=== PATIENT | female | born 1965 | race Caucasian/White ===

== ENCOUNTER 2018-11-09 06:04 | Emergency (ER) | payer BC ==
[2018-11-09] MEDS ORDERED: BABY ASPIRIN 81 MG CHEW PO ONE (06:23)
--- NOTE | 2018-11-09 06:29 | ERPHSYRPT ---
<AIYANAALEXISSTONELEY - Last Filed: 11/09/18 07:02> - History of Present Illness Time Seen by Provider: 11/09/18 06:24 Historian: patient Exam Limitations: no limitations Patient Subjective Stated Complaint: pt states she began having pain in her chest radiating to back and jaw. Triage Nursing Assessment: pt alert and oriented, answers questiosn a pprop. pt ambualtory with steady gait noted. respirations nonlabored with lungs cta. sinus rhythm on monitor with heart rate of 94. Physician History: This is a 53-year-old white female arrives with complaint of pain in her anterior substernal and left chest radiating into her back, jaw, neck. This is described as a tightness associated with some shortness of breath. No nausea, positive diaphoresis occurred approximately 30 minutes prior to arrival. Pain initially radiated or 5 out of 10 now, rated 1 out of 10. Past medical history high blood pressure, GERD Past surgical history includes hemorrhoidectomy and uterine ablation Social history alcohol 2-3 times a week former smoker. (3 months). Patient denies illicit drugs Timing/Duration: today (30 minutes prior to arri) Activities at Onset: other (talking at work) Quality: pressure, tightness ( a pressure, tight pressur) Chest Pain Radiation: jaw, neck, back Severity of Pain-Max: moderate (5 out of 10) Severity of Pain-Current: mild (1 out of 10) Modifying Factors: Improves With: nothing Associated Symptoms: shortness of breath, diaphoresis, No nausea, No vomiting, No palpitations, No heartburn, No abdominal pain, No cough, No hurts to breathe , No chills, No fever, No fatigue, No weakness, No swelling/lump in chest, No syncope, No rash, No headache, No dizziness, No edema, No back pain Prior Chest Pain/Cardiac Workup: no prior chest pain (has had prior pain in the past never worked up) Nitro Today/Relief: no nitro taken today Aspirin Treatment Today: 81 mg x 4, provided by ED Allergies/Adverse Reactions: Penicillins Allergy (Verified 11/09/18 06:14) Home Medications: Lisinopril 20 mg [Zestril 20 MG] 20 mg PO DAILY 11/09/18 [History] Omeprazole 20 mg PO BID 11/09/18 [History] Hx Tetanus, Diphtheria Vaccination/Date Given: Yes Hx Influenza Vaccination/Date Given: Yes Hx Pneumococcal Vaccination/Date Given: No Immunizations Up to Date: Yes - Review of Systems Constitutional: No Fever, No Chills Eyes: No Symptoms Ears, Nose, & Throat: No Symptoms Respiratory: No Cough, No Dyspnea Cardiac: Chest Pain, Other (diaphoresis) Abdominal/Gastrointestinal: No Abdominal Pain, No Nausea, No Vomiting, No Diarrhea Genitourinary Symptoms: No Dysuria Musculoskeletal: No Back Pain, No Neck Pain Skin: No Rash Neurological: No Dizziness, No Focal Weakness, No Sensory Changes Psychological: No Symptoms Endocrine: No Symptoms All Other Systems: Reviewed and Negative - Past Medical History Pertinent Past Medical History: Yes Cardiac History: Hypertension GI Medical History: GERD - Past Surgical History Past Surgical History: Yes Gastrointestinal: Hemorrhoidectomy - Social History Smoking Status: Former smoker Exposure to second hand smoke: No Drug Use: none Patient Lives Alone: No - Female History Hx Last Menstrual Period: post Hx Now: No - Nursing Vital Signs Nursing Vital Signs: Initial Vital Signs Temperature 98.4 F 11/09/18 06:05 Pulse Rate 100 H 11/09/18 06:05 Respiratory Rate 18 11/09/18 06:05 Blood Pressure 144/87 11/09/18 06:05 O2 Sat by Pulse Oximetry 95 11/09/18 06:05 Pain Scale Pain Intensity 0 - Physical Exam General Appearance: no apparent distress, alert Eye Exam: PERRL/EOMI, eyes nml inspection Ears, Nose, Throat Exam: normal ENT inspection, moist mucous membranes Neck Exam: normal inspection, non-tender, supple, full range of motion Respiratory Exam: normal breath sounds, lungs clear, No chest tenderness, No respiratory distress Cardiovascular Exam: regular rate/rhythm, normal heart sounds, capillary refill <2 sec Gastrointestinal/Abdomen Exam: soft, No tenderness, No mass Back Exam: normal inspection, No CVA tenderness, No vertebral tenderness Extremity Exam: normal inspection, normal range of motion Neurologic Exam: alert, oriented x 3, cooperative, science editor II-XII nml as tested, normal mood/affect, sensation nml, No motor deficits Skin Exam: normal color, warm, dry SpO2 Interpretation: normal (95%) SpO2: 95 - Course Nursing assessment & vital signs reviewed: Yes EKG Interpreted by Me: RATE (84 bpm), Sinus Rhythm, NORMAL AXIS, Other (EKG: Sinus rhythm, 84 bpm, normal axis, no acute ST or T wave changes, normal EKG) - Radiology Exams Chest X-ray Interpretation: Interpreted by me (no acute disease process noted) Ordered Tests: Active Orders 24 hr Category Date Time Status [facility] STAT Care 11/09/18 06:23 Active EKG-ER Only STAT Care 11/09/18 06:23 Active IV Insertion STAT Care 11/09/18 06:23 Active Pulse Oximetry (ED) STAT Care 11/09/18 06:23 Active CHEST 1 VIEW (PORTABLE) Stat Exams 11/09/18 06:23 Completed CBC W DIFF Stat Lab 11/09/18 06:34 Completed CMP Stat Lab 11/09/18 06:34 Completed D-DIMER QUANTITATION Stat Lab 11/09/18 06:34 Completed TROPONIN Q3H Lab 11/09/18 06:34 Completed TROPONIN Q3H Lab 11/09/18 09:33 Completed TROPONIN Q3H Lab 11/09/18 12:30 Ordered TROPONIN Q3H Lab 11/09/18 15:30 Ordered TROPONIN Q3H Lab 11/09/18 18:30 Ordered Medication Summary Discontinued Medications Generic Name Dose Route Start Last Admin Trade Name Freq PRN Reason Stop Dose Admin Aspirin 324 mg 11/09/18 06:23 11/09/18 06:30 Baby Aspirin 81 Mg Chew PO 11/09/18 06:24 324 mg STAT ONE Administration Aspirin Confirm 11/09/18 06:30 Baby Aspirin 81 Mg Chew Administered 11/09/18 06:31 Dose 324 mg .ROUTE .STResonate-MED ONE Lab/Rad Data: Laboratory Result Diagrams 11/09/18 06:34 11/09/18 06:34 Laboratory Results 11/09/18 11/09/18 11/09/18 Range/Units 09:33 06:34 06:34 WBC (4.0-10.5) K/mm3 RBC (4.1-5.4) M/mm3 Hgb (12.0-16.0) gm/dl Hct (35-47) % MCV (78-100) fl MCH (26-32) pg MCHC (32-36) g/dl RDW (11.5-14.0) % Plt Count (150-450) K/mm3 MPV (6-9.5) fl Gran % (36.0-66.0) % Eos # (Auto) (0-0.5) Absolute Lymphs (auto) (1.0-4.6) Absolute Monos (auto) (0.0-1.3) Lymphocytes % (24.0-44.0) % Monocytes % (0.0-12.0) % Eosinophils % (0.00-5.0) % Basophils % (0.0-0.4) % Absolute Granulocytes (1.4-6.9) Basophils # (0-0.4) D-Dimer < 124 L (215-500) ng/mL Sodium (137-145) mmol/L Potassium (3.5-5.1) mmol/L Chloride (98-107) mmol/L Carbon Dioxide (22-30) mmol/L Anion Gap (5-15) MEQ/L BUN (7-17) mg/dL Creatinine (0.52-1.04) mg/dL Estimated GFR ML/MIN Glucose (74-106) mg/dL Calcium (8.4-10.2) mg/dL Total Bilirubin (0.2-1.3) mg/dL AST (14-36) U/L ALT (0-35) U/L Alkaline Phosphatase (38-126) U/L Troponin I < 0.012 < 0.012 (0.000-0.034) ng/mL Serum Total Protein (6.3-8.2) g/dL Albumin (3.5-5.0) g/dL 11/09/18 11/09/18 Range/Units 06:34 06:34 WBC 6.9 (4.0-10.5) K/mm3 RBC 4.58 (4.1-5.4) M/mm3 Hgb 14.9 (12.0-16.0) gm/dl Hct 45.4 (35-47) % MCV 99.1 (78-100) fl MCH 32.5 H (26-32) pg MCHC 32.8 (32-36) g/dl RDW 13.5 (11.5-14.0) % Plt Count 218 (150-450) K/mm3 MPV 11.1 H (6-9.5) fl Gran % 59.1 (36.0-66.0) % Eos # (Auto) 0.41 (0-0.5) Absolute Lymphs (auto) 1.78 (1.0-4.6) Absolute Monos (auto) 0.62 (0.0-1.3) Lymphocytes % 25.7 (24.0-44.0) % Monocytes % 9.0 (0.0-12.0) % Eosinophils % 5.9 H (0.00-5.0) % Basophils % 0.3 (0.0-0.4) % Absolute Granulocytes 4.09 (1.4-6.9) Basophils # 0.02 (0-0.4) D-Dimer (215-500) ng/mL Sodium 140 (137-145) mmol/L Potassium 3.8 (3.5-5.1) mmol/L Chloride 103 (98-107) mmol/L Carbon Dioxide 25 (22-30) mmol/L Anion Gap 15.8 H (5-15) MEQ/L BUN 16 (7-17) mg/dL Creatinine 0.72 (0.52-1.04) mg/dL Estimated GFR > 60.0 ML/MIN Glucose 118 H (74-106) mg/dL Calcium 10.0 (8.4-10.2) mg/dL Total Bilirubin 0.60 (0.2-1.3) mg/dL AST 38 H (14-36) U/L ALT 45 H (0-35) U/L Alkaline Phosphatase 95 (38-126) U/L Troponin I (0.000-0.034) ng/mL Serum Total Protein 7.7 (6.3-8.2) g/dL Albumin 4.5 (3.5-5.0) g/dL - Progress Progress: improved Air Movement: fair Progress Note: 11/09/18 07:00 53-year-old white female with history of high blood pressure, GERD, arrives with complaint of anterior and left-sided chest pain radiating to the jaw. Neck described as pressure and tightness onset 30 minutes prior to arrival. Initially 5 out of 10 at time of interview. Patient was essentially normal EKG chest x-ray no acute disease process noted troponin is pending. Patient given 324 mg of aspirin. Patient is stable case is discussed with Dr. Chavez he will assume care of this patient secondary to shift change. - Departure Clinical Impression: Chest pain Condition: Stable Referrals: HUSAM KO NP [Primary Care Provider] - Additional Instructions: follow up with primary doctor for further management including referral to rate reviewer if indicated. <EMILY CHAVEZ - Last Filed: 11/09/18 10:44> - Progress Progress Note: 11/09/18 10:43 cxr-no acute process. denies cp now Blood Culture(s) Obtained: No Antibiotics given: No Counseled pt/family regarding: lab results, diagnosis, need for follow-up, rad results - Departure Departure Disposition: Home Critical Care Time: No
[2018-11-09] MEDS ORDERED: BABY ASPIRIN 81 MG CHEW ONE (06:30)
[2018-11-09 06:36] LABS: BASOPHIL % 0.3 % (0.0-0.4); Basophil (Absolute #) 0.02 (0-0.4); Eosinophil % 5.9 % (0.00-5.0); Eosinophil (Absolute #) 0.41 (0-0.5); Granulocyte Absolute (ANC) 4.09 (1.4-6.9); Granulocytes % 59.1 % (36.0-66.0); Hematocrit 45.4 % (35-47); Hemoglobin 14.9 gm/dl (12.0-16.0); Lymphocyte (Absolute #) 1.78 (1.0-4.6); Lymphocytes % 25.7 % (24.0-44.0); Mean Cell Volume 99.1 fl (78-100); Mean Corpuscular Hemoglobin 32.5 pg (26-32); Mean Corpuscular Hgb Concent. 32.8 g/dl (32-36); Mean Platelet Volume 11.1 fl (6-9.5); Monocyte (Absolute #) 0.62 (0.0-1.3); Platelet Count 218 K/mm3 (150-450); Red Blood Count 4.58 M/mm3 (4.1-5.4); Red Cell Distribution Width 13.5 % (11.5-14.0); White Blood Count 6.9 K/mm3 (4.0-10.5)
[2018-11-09 07:29] LABS: ALBUMIN 4.5 g/dL (3.5-5.0); ALKALINE PHOSPHATASE 95 U/L (38-126); ANION GAP 15.8 MEQ/L (5-15); BLOOD UREA NITROGEN 16 mg/dL (7-17); CHLORIDE 103 mmol/L (98-107); Carbon Dioxide 25 mmol/L (22-30); Creatinine 1 0.72 mg/dL (0.52-1.04); Glucose 118 mg/dL (74-106); Potassium 3.8 mmol/L (3.5-5.1); SGOT/AST 38 U/L (14-36); SGPT/ALT 45 U/L (0-35); SODIUM 140 mmol/L (137-145); Total Protein 7.7 g/dL (6.3-8.2)
[2018-11-09 07:55] VITALS: PULSE 78
--- NOTE | 2018-11-09 09:14 | XRAY ---
Indication: Chest pain. Comparison: None Portable chest demonstrates normal heart, lungs, and bony thorax.
[2018-11-09 11:04] VITALS: BP 130/80; O2SAT 98
== END 2018-11-09 11:04 | disposition home or self-care (01) ==
LOC: ED 06:04
DX: R07.9 Chest pain, unspecified (principal); I10 Essential (primary) hypertension; K21.9 Gastro-esophageal reflux disease without esophagitis
CPT/HCPCS: 36000; 36415; 71045; 80053; 84484; 85025; 85379; 93005; 93041; 99284; A9270-GY